=== PATIENT | male | born 1960 | race Caucasian/White ===

== ENCOUNTER 2021-08-31 17:14 | Emergency (ER) | payer OTHER ==
[~2021-08-31] VITALS: Ht 185.4 cm; Wt 135.5 kg
[2021-08-31] MEDS ORDERED: LORazepam 2 MG TAB PO PRN (17:40)
[2021-08-31] MEDS ORDERED: THIAMINE 100 MG TAB PO SCH (18:00)
[2021-08-31 18:15] LABS: BASO # 0.1 10^3/uL (0.0-0.2); BASO % 1.2 % (0.0-1.0); EOS # 0.1 10^3/uL (0.0-0.5); EOS % 2.8 % (0.0-3.0); HEMATOCRIT 42.8 % (42.0-52.0); HEMOGLOBIN 14.3 g/dl (13.5-17.5); LYMPH # 2.7 10^3/uL (1.5-5.0); LYMPH % 54.6 % (24.0-44.0); MEAN CORPUSCULAR HEMOGLOBIN 31.6 pg (27.0-33.0); MEAN CORPUSCULAR HGB CONC 33.4 g/dl (32.0-36.5); MEAN CORPUSCULAR VOLUME 94.7 fl (80.0-96.0); MONO # 0.7 10^3/uL (0.0-0.8); MONO % 13.1 % (2.0-8.0); NEUTROPHILS # 1.4 10^3/uL (1.5-8.5); NEUTROPHILS % 28.1 % (36.0-66.0); RED BLOOD COUNT 4.52 10^6/uL (4.30-6.10)
--- NOTE | 2021-08-31 18:41 | REP ---
INDICATION: SOB COMPARISON: None. TECHNIQUE: Portable AP view of the chest FINDINGS: Cardiomegaly noted. The lung kelley are clear without acute consolidation, effusion, or pneumothorax. Skeletal structures are intact. IMPRESSION: Cardiomegaly. No acute consolidation or effusion. <Electronically signed by Deuce Ko > 08/31/21 [id number]
--- NOTE | 2021-08-31 18:46 | REPVR ---
PROCEDURE INFORMATION: Exam: CT Head Without Contrast Exam date and time: 08/31/2021 5:52 PM Age: 60 years old Clinical indication: Altered mental status/memory loss TECHNIQUE: Imaging protocol: Computed tomography of the head without contrast. Radiation optimization: All CT scans at this facility use at least one of these dose optimization techniques: automated exposure control; mA and/or kV adjustment per patient size (includes targeted exams where dose is matched to clinical indication); or iterative reconstruction. COMPARISON: No relevant prior studies available. FINDINGS: Brain: There is no acute intracranial hemorrhage, cerebral edema, or midline shift. Moderate cerebral and cerebellar volume loss is present. Cerebral ventricles: Mild ex vacuo dilation of the lateral ventricles is noted. Paranasal sinuses: Right maxillary sinusitis is present. Mastoid air cells: The mastoid air cells are clear. Orbital cavity: A right ocular prosthesis is present. Bones/joints: No acute fracture. Soft tissues: Unremarkable. IMPRESSION: No acute intracranial abnormality. Electronically signed by: Chucho Patel On 08/31/2021 18:45:58 PM
[2021-08-31 18:47] LABS: ACETAMINOPHEN LEVEL < 2.0 UG/ML (10.0-30.0); ALBUMIN 3.2 GM/DL (3.2-5.2); ALT/SGPT 90 U/L (12-78); BILIRUBIN,DIRECT 0.4 MG/DL (0.0-0.2); BILIRUBIN,TOTAL 0.7 MG/DL (0.2-1.0); BLOOD UREA NITROGEN 10 MG/DL (7-18); CALCIUM LEVEL 8.1 MG/DL (8.5-10.1); CARBON DIOXIDE LEVEL 26 MEQ/L (21-32); CHLORIDE LEVEL 104 MEQ/L (98-107); CK-MB VALUE MASS 2.1 NG/ML (<3.6); CPK CREATINE PHOSPHOKINASE 68 U/L (39-308); CREATININE FOR GFR 0.89 MG/DL (0.70-1.30); ETHYL ALCOHOL (ETHANOL) 0.392 % (0.000-0.010); GLOMERULAR FILTRATION RATE > 60.0 (>56); GLUCOSE, FASTING 114 MG/DL (70-100); MAGNESIUM LEVEL 1.5 MG/DL (1.8-2.4); MB/CK RELATIVE INDEX 3.09 (< OR =4); SALICYLATE LEVEL < 1.7 MG/DL (5.0-30.0); SODIUM LEVEL 142 MEQ/L (136-145); THYROID STIMULATING HORMONE 0.379 uIU/ML (0.358-3.740); TROPONIN I < 0.02 NG/ML (< 0.10)
[2021-08-31 18:52] LABS: PLATELET COUNT, AUTOMATED 94 10^3/uL (150-450)
[2021-08-31 18:54] LABS: OSMOLALITY SERUM 394 MOSM/KG (275-295)
[2021-08-31] MEDS ORDERED: NS 1,000 ML IV ONE (19:10)
[2021-08-31] MEDS ORDERED: MAG SULF 1GM/100ML (MAG RUN) 1 GM in IV 1 EA IV ONE (19:15)
[2021-08-31 19:16] LABS: NT-PRO BNP 478 PG/ML (<125)
[2021-09-01 00:45] LABS: AMPHETAMINES LEVEL URINE NEGATIVE (NEGATIVE); BARBITURATES URINE NEGATIVE (NEGATIVE); BENZODIAZEPINES URINE NEGATIVE (NEGATIVE); CANNABINOIDS URINE POSITIVE (NEGATIVE); COCAINE METABOLITE URINE NEGATIVE (NEGATIVE); METHADONE URINE NEGATIVE (NEGATIVE); OPIATES URINE NEGATIVE (NEGATIVE); PHENCYCLIDINE URINE NEGATIVE (NEGATIVE)
[2021-09-01 00:46] LABS: CREATININE,RANDOM URINE 36.4 MG/DL
[2021-09-01] MEDS ORDERED: FUROSEMIDE 40 MG TAB PO ONE (01:25)
[2021-09-01 01:39] VITALS: BP 135/87
[2021-09-01] MEDS ORDERED: FOLIC ACID 1 MG TAB PO SCH (09:00)
[2021-09-01] MEDS ORDERED: MULTIVITAMINS/MINERALS THERAP 1 TAB PO SCH (09:00)
--- NOTE | 2021-09-02 17:24 | ECGEPIP ---
[facility] - ED Test Date: 2021-08-31 Pat Name: TIFFANIE YANG Department: Room: - Gender: Male [employer] Developer: kisha : 1960 Requested By: CLINTON CRUZ Order Number: [id number] Reading MD: Zaynab Child Measurements Intervals [place] Rate: 102 P: [place]: QRS: 88 QRSD: 104 T: 3 QT: 366 QTc: 477 Interpretive Statements Atrial fibrillation with rapid ventricular response Nonspecific ST and T wave abnormality prolonged qtc No prior Electronically Signed on 09-02-2021 17:23:59 EDT by Zaynab Child
== END 2021-09-01 01:53 | disposition home or self-care (01) ==
LOC: M ED 17:14
DX: G40.909 Epilepsy, unspecified, not intractable, without status epilepticus (principal); F10.10 Alcohol abuse, uncomplicated; Y90.1 Blood alcohol level of 20-39 mg/100 ml; R60.0 Localized edema; I50.9 Heart failure, unspecified; I11.0 Hypertensive heart disease with heart failure; I48.91 Unspecified atrial fibrillation; Z87.828 Personal history of other (healed) physical injury and trauma; F12.20 Cannabis dependence, uncomplicated
CPT/HCPCS: 70450; 71045; 80048; 80076; 80143; 80307; 82077; 82140; 82550; 82553; 82570; 83605; 83735; 83880; 83930; 83935; 84300; 84443; 85025; 85049; 85055; 93005; 93041; 94760; 96365; 99285; J3475

== ENCOUNTER 2021-10-24 23:37 | Inpatient (IN) | payer OTHER ==
[~2021-10-24] VITALS: Ht 188 cm; Wt 105.3 kg
[2021-10-25] VITALS (13 sets, daily range): BP systolic 118–127; BP diastolic 80–94; O2SAT 92–96
[2021-10-25] LABS: ABG BASE EXCESS 0.7 (-2.0-2.0); ABG HCO3 22.4 MEQ/L (22.0-26.0); ABG PARTIAL PRESSURE CO2 28.5 mmHg (35.0-45.0); ABG STANDARD HCO3 25.1 MEQ/L (22.0-26.0); ABG TOTAL CO2 23.3 MEQ/L (22.0-29.0); ABG pH (ARTERIAL) 7.514 UNITS (7.350-7.450)
[2021-10-25] MEDS ORDERED: NS 1,000 ML IV ONE ×2 (00:10)
[2021-10-25 00:23] LABS: BASO % 0.3 % (0.0-1.0); EOS % 0.1 % (0.0-3.0); HEMATOCRIT 38.4 % (42.0-52.0); HEMOGLOBIN 13.3 g/dl (13.5-17.5); LYMPH # 0.9 10^3/uL (1.5-5.0); LYMPH % 12.7 % (24.0-44.0); MEAN CORPUSCULAR HEMOGLOBIN 31.7 pg (27.0-33.0); MEAN CORPUSCULAR HGB CONC 34.6 g/dl (32.0-36.5); MEAN CORPUSCULAR VOLUME 91.6 fl (80.0-96.0); MONO # 0.9 10^3/uL (0.0-0.8); MONO % 12.8 % (2.0-8.0); NEUTROPHILS # 5.1 10^3/uL (1.5-8.5); NEUTROPHILS % 73.2 % (36.0-66.0); PLATELET COUNT, AUTOMATED 119 10^3/uL (150-450); RED BLOOD COUNT 4.19 10^6/uL (4.30-6.10); WHITE BLOOD COUNT 6.9 10^3/uL (4.0-10.0)
[2021-10-25 00:32] LABS: INR 1.41; PROTHROMBIN TIME 17.7 SECONDS (12.7-14.5)
[2021-10-25 00:57] LABS: AMORPHOUS SEDIMENT SMALL (NEGATIVE); APPEARANCE, URINE HAZY (CLEAR); BACTERIA, URINE AUTO NEGATIVE (NEGATIVE); BILIRUBIN, URINE AUTO 2+ (NEGATIVE); BLOOD, URINE BLOOD 1+ (NEGATIVE); COLOR, URINE AMBER (YELLOW); GLUCOSE, URINE (UA) AUTO 1+ mg/dL (NEGATIVE); KETONE, URINE AUTO TRACE mg/dL (NEGATIVE); LEUKOCYTE ESTERASE, URINE AUTO NEGATIVE (NEGATIVE); NITRITE, URINE AUTO NEGATIVE (NEGATIVE); PROTEIN, URINE AUTO 2+ mg/dL (NEGATIVE); RBC, URINE AUTO 0 /HPF (0-3); SPECIFIC GRAVITY URINE AUTO 1.024 (1.002-1.035); SQUAMOUS EPITHELIAL CELL UR AU 0 /HPF (0-6); WBC, URINE AUTO 2 /HPF (0-3)
[2021-10-25 01:06] LABS: ALT/SGPT 140 U/L (12-78); BILIRUBIN,DIRECT 14.4 MG/DL (0.0-0.2); BILIRUBIN,TOTAL 17.4 MG/DL (0.2-1.0); BLOOD UREA NITROGEN 26 MG/DL (7-18); CALCIUM LEVEL 7.8 MG/DL (8.5-10.1); CARBON DIOXIDE LEVEL 24 MEQ/L (21-32); CHLORIDE LEVEL 89 MEQ/L (98-107); CREATININE FOR GFR 1.11 MG/DL (0.70-1.30); GLOMERULAR FILTRATION RATE > 60.0 (>56); GLUCOSE, FASTING 187 MG/DL (70-100); POTASSIUM SERUM 4.6 MEQ/L (3.5-5.1); SODIUM LEVEL 128 MEQ/L (136-145)
[2021-10-25 01:07] LABS: ALBUMIN 2.5 GM/DL (3.2-5.2); AMYLASE 108 U/L (25-115); C REACTIVE PROTEIN QUANTITATIV 5.56 MG/DL (0.00-0.30); LIPASE 1909 U/L (73-393); TOTAL PROTEIN 6.3 GM/DL (6.4-8.2)
[2021-10-25 01:16] LABS: RSV AMPLIFICATION NEGATIVE (NEGATIVE)
[2021-10-25] MEDS ORDERED: PIPERACILLIN/TAZOBACTAM SOD 4.5 GM in D5W MINI-BAG PLUS 50 ML IV ONE (02:20)
[2021-10-25] MEDS: METOPROLOL 5 MG/5 ML VIAL IV SCH ×3 (02:50→03:05)
[2021-10-25] MEDS ORDERED: LEXA1TAB PO (02:59)
[2021-10-25] MEDS ORDERED: BUPR150T12 PO (02:59)
[2021-10-25] MEDS ORDERED: HYDR1CAP25 PO (02:59)
[2021-10-25] MEDS ORDERED: SUBO8MIS SL (02:59)
[2021-10-25] MEDS ORDERED: GABA-282 PO (02:59)
[2021-10-25] MEDS ORDERED: FUROSEMIDE 40MG/4ML VIAL (J1940) IV SCH (03:00)
[2021-10-25] MEDS ORDERED: HOME MED LIST COMPLETE! XX SCH (03:00)
[2021-10-25] MEDS ORDERED: DIGOXIN INJ 0.5 MG/2 ML AMP (J1160) IV STA ×2 (03:37→08:03)
[2021-10-25] MEDS ORDERED: METOPROLOL TART 25 MG TABLET PO ONE ×2 (05:00→08:45)
[2021-10-25 05:43] LABS: OSMOLALITY URINE 741 MOSM/KG (50-1400)
[2021-10-25] MEDS ORDERED: HEPARIN SOD (PORCINE) 5000UNITS/ML 1ML VIAL/SYRINGE IV ONE (05:45)
[2021-10-25 05:50] LABS: POTASSIUM RANDOM URINE 20.8 MEQ/L; SODIUM,RANDOM URINE < 10 MEQ/L
[2021-10-25] MEDS ORDERED: HEPARIN SOD (PORCINE) 5000UNITS/ML 1ML VIAL/SYRINGE IV PRN (06:00)
[2021-10-25] MEDS ORDERED: HEPARIN SOD (PORCINE) 5000UNITS/ML 1ML VIAL/SYRINGE SC SCH (06:00)
[2021-10-25] MEDS ORDERED: HEPARIN DRIP 25,000 UNITS in IV 1 EA IV SCH (06:00)
[2021-10-25 06:37] LABS: HEMATOCRIT 38.2 % (42.0-52.0); MEAN CORPUSCULAR HEMOGLOBIN 31.5 pg (27.0-33.0); MEAN CORPUSCULAR VOLUME 92.5 fl (80.0-96.0); PLATELET COUNT, AUTOMATED 117 10^3/uL (150-450); RED BLOOD COUNT 4.13 10^6/uL (4.30-6.10); WHITE BLOOD COUNT 7.2 10^3/uL (4.0-10.0)
[2021-10-25 06:56] LABS: CK-MB VALUE MASS 2.1 NG/ML (<3.6); MB/CK RELATIVE INDEX 2.5 (< OR =4)
[2021-10-25 07:38] LABS: OSMOLALITY SERUM 342 MOSM/KG (275-295)
[2021-10-25] MEDS ORDERED: NS 1,000 ML IV SCH ×2 (07:40→08:00)
[2021-10-25] MEDS: MULTIVITAMINS/MINERALS THERAP 1 TAB PO SCH (08:31)
[2021-10-25] MEDS: FOLIC ACID 1 MG TAB PO SCH (08:33)
[2021-10-25] MEDS: GABAPENTIN 300 MG CAP PO SCH ×3 (08:33→21:18)
[2021-10-25] MEDS: PIPERACILLIN/TAZOBACTAM SOD 4.5 GM in D5W MINI-BAG PLUS 50 ML IV SCH ×3 (08:33→21:26)
[2021-10-25] MEDS: ESCITALOPRAM OXALATE 10 MG TAB (LEXAPRO) PO SCH (08:33)
[2021-10-25] MEDS: THIAMINE 100 MG TAB PO SCH ×2 (08:33→21:18)
[2021-10-25] MEDS: BUPRENORPHINE/NALOXONE 8-2MG SUBLINGUAL TABLET(SUBOXONE) SL SCH ×3 (08:55→21:18)
[2021-10-25] MEDS: PANTOPRAZOLE 40MG VIAL (C9113 PER 1) IV SCH (09:00)
[2021-10-25] MEDS ORDERED: APIXABAN 5 MG TAB (ELIQUIS) PO SCH (09:00)
[2021-10-25 09:47] LABS: ALBUMIN 2.4 GM/DL (3.2-5.2); ALT/SGPT 139 U/L (12-78); BILIRUBIN,TOTAL 18.4 MG/DL (0.2-1.0); BLOOD UREA NITROGEN 27 MG/DL (7-18); CALCIUM LEVEL 7.4 MG/DL (8.5-10.1); CARBON DIOXIDE LEVEL 20 MEQ/L (21-32); CHLORIDE LEVEL 90 MEQ/L (98-107); CREATININE FOR GFR 1.14 MG/DL (0.70-1.30); FERRITIN 712 NG/ML (26-388); FREE T4 1.33 NG/DL (0.76-1.46); GLOMERULAR FILTRATION RATE > 60.0 (>56); GLUCOSE, FASTING 195 MG/DL (70-100); IRON (FE) 104 UG/DL (65-175); MAGNESIUM LEVEL 1.6 MG/DL (1.8-2.4); PERCENT SATURATION 49.5 % (19.7-50.0); SODIUM LEVEL 128 MEQ/L (136-145); THYROID STIMULATING HORMONE 0.429 uIU/ML (0.358-3.740); TOTAL IRON BINDING CAPACITY 210 UG/DL (250-450)
[2021-10-25] MEDS ORDERED: LORazepam 2 MG TAB PO PRN (10:00)
[2021-10-25] MEDS ORDERED: FUROSEMIDE 40MG/4ML VIAL (J1940) IV ONE (11:00)
[2021-10-25] MEDS ORDERED: predniSONE 20 MG TAB PO ONE (11:00)
[2021-10-25 11:20] LABS: CK-MB VALUE MASS 2.3 NG/ML (<3.6); MB/CK RELATIVE INDEX 2.47 (< OR =4)
[2021-10-25] MEDS: MIDODRINE 5 MG TAB PO SCH ×3 (11:40→16:00)
[2021-10-25] MEDS: LACTOBACILLUS ACIDOPHILUS CAP (BACID) PO SCH ×3 (11:40→21:19)
[2021-10-25] MEDS: LORazepam 2 MG TAB PO PRN ×2 (11:59→16:24)
[2021-10-25] MEDS ORDERED: diltiaZEM 125 MG in NS 100 ML IV SCH (12:00)
[2021-10-25] MEDS ORDERED: METOPROLOL TART 50 MG TAB PO SCH (12:00)
[2021-10-25] MEDS: DIGOXIN INJ 0.5 MG/2 ML AMP (J1160) IV SCH ×2 (13:23→21:18)
[2021-10-25] MEDS: OXAZEPAM 15 MG CAP PO SCH ×2 (13:23→18:05)
[2021-10-25 14:25] LABS: ACETAMINOPHEN LEVEL < 2.0 UG/ML (10.0-30.0); FERRITIN 798 NG/ML (26-388); IRON (FE) 118 UG/DL (65-175); PERCENT SATURATION 53.6 % (19.7-50.0); TOTAL IRON BINDING CAPACITY 220 UG/DL (250-450)
[2021-10-25] MEDS: FUROSEMIDE 40MG/4ML VIAL (J1940) IV SCH ×3 (14:45→23:56)
[2021-10-25 16:30] LABS: MONO REFLEX EBV VCA IgM NEGATIVE (NEGATIVE)
[2021-10-25 19:33] LABS: CK-MB VALUE MASS 2.1 NG/ML (<3.6); MB/CK RELATIVE INDEX 2.12 (< OR =4)
[2021-10-25 20:26] LABS: BLOOD UREA NITROGEN 27 MG/DL (7-18); CALCIUM LEVEL 7.8 MG/DL (8.5-10.1); CARBON DIOXIDE LEVEL 23 MEQ/L (21-32); CHLORIDE LEVEL 89 MEQ/L (98-107); CREATININE FOR GFR 1.29 MG/DL (0.70-1.30); GLOMERULAR FILTRATION RATE > 60.0 (>56); GLUCOSE, FASTING 261 MG/DL (70-100); POTASSIUM SERUM 3.6 MEQ/L (3.5-5.1); SODIUM LEVEL 128 MEQ/L (136-145)
[2021-10-25] MEDS ORDERED: METOPROLOL TART 25 MG TABLET PO SCH (21:00)
[2021-10-26] VITALS (16 sets, daily range): BP systolic 98–140; BP diastolic 56–84; O2SAT 88–97
[2021-10-26 00:13] LABS: CK-MB VALUE MASS 1.8 NG/ML (<3.6); MB/CK RELATIVE INDEX 2.22 (< OR =4)
[2021-10-26] MEDS: OXAZEPAM 15 MG CAP PO SCH ×4 (00:45→18:40)
[2021-10-26] MEDS: PIPERACILLIN/TAZOBACTAM SOD 4.5 GM in D5W MINI-BAG PLUS 50 ML IV SCH ×4 (03:00→20:47)
[2021-10-26 06:25] LABS: BASO % 0.2 % (0.0-1.0); HEMATOCRIT 34.2 % (42.0-52.0); LYMPH # 0.6 10^3/uL (1.5-5.0); LYMPH % 9.4 % (24.0-44.0); MEAN CORPUSCULAR HEMOGLOBIN 32.2 pg (27.0-33.0); MEAN CORPUSCULAR HGB CONC 35.1 g/dl (32.0-36.5); MEAN CORPUSCULAR VOLUME 91.7 fl (80.0-96.0); MONO # 0.7 10^3/uL (0.0-0.8); MONO % 10.8 % (2.0-8.0); NEUTROPHILS % 77.9 % (36.0-66.0); RED BLOOD COUNT 3.73 10^6/uL (4.30-6.10); WHITE BLOOD COUNT 6.4 10^3/uL (4.0-10.0)
[2021-10-26 06:29] LABS: HEMATOCRIT 34.8 % (42.0-52.0); HEMOGLOBIN 12.1 g/dl (13.5-17.5); MEAN CORPUSCULAR HEMOGLOBIN 32.2 pg (27.0-33.0); MEAN CORPUSCULAR HGB CONC 34.8 g/dl (32.0-36.5); MEAN CORPUSCULAR VOLUME 92.6 fl (80.0-96.0); RED BLOOD COUNT 3.76 10^6/uL (4.30-6.10); WHITE BLOOD COUNT 6.4 10^3/uL (4.0-10.0)
[2021-10-26 06:31] LABS: PLATELET COUNT, AUTOMATED 96 10^3/uL (150-450)
[2021-10-26 06:34] LABS: INR 1.52; PARTIAL THROMBOPLASTIN TIME 36.3 SECONDS (25.9-37.0); PROTHROMBIN TIME 18.7 SECONDS (12.7-14.5)
[2021-10-26 06:42] LABS: PLATELET COUNT, AUTOMATED 95 10^3/uL (150-450)
[2021-10-26 07:07] LABS: CHOLESTEROL RISK RATIO 10.25 (<5)
[2021-10-26 07:23] LABS: ALBUMIN 2.3 GM/DL (3.2-5.2); BILIRUBIN,TOTAL 20.9 MG/DL (0.2-1.0); CALCIUM LEVEL 7.7 MG/DL (8.5-10.1); CREATININE FOR GFR 1.36 MG/DL (0.70-1.30); GLOMERULAR FILTRATION RATE 57.3 (>56); MAGNESIUM LEVEL 1.3 MG/DL (1.8-2.4); POTASSIUM SERUM 3.2 MEQ/L (3.5-5.1); TOTAL PROTEIN 5.9 GM/DL (6.4-8.2)
[2021-10-26] MEDS ORDERED: MAG SULF 1GM/100ML (MAG RUN) 1 GM in IV 1 EA IV ONE ×2 (08:00→18:25)
[2021-10-26 08:14] LABS: HEMOGLOBIN A1c 5.6 %
[2021-10-26] MEDS: MIDODRINE 5 MG TAB PO SCH ×3 (08:42→16:09)
[2021-10-26] MEDS: MULTIVITAMINS/MINERALS THERAP 1 TAB PO SCH (08:43)
[2021-10-26] MEDS: predniSONE 20 MG TAB PO SCH (08:43)
[2021-10-26] MEDS: LACTOBACILLUS ACIDOPHILUS CAP (BACID) PO SCH ×4 (08:43→20:46)
[2021-10-26] MEDS: POTASSIUM CHLORIDE 10MEQ SR TABLET PO SCH ×2 (08:43→20:46)
[2021-10-26] MEDS: BUPRENORPHINE/NALOXONE 8-2MG SUBLINGUAL TABLET(SUBOXONE) SL SCH ×3 (08:44→20:45)
[2021-10-26] MEDS: GABAPENTIN 300 MG CAP PO SCH ×3 (08:44→20:45)
[2021-10-26] MEDS: THIAMINE 100 MG TAB PO SCH ×2 (08:44→20:47)
[2021-10-26] MEDS: FOLIC ACID 1 MG TAB PO SCH (08:44)
[2021-10-26] MEDS: ESCITALOPRAM OXALATE 10 MG TAB (LEXAPRO) PO SCH (08:44)
[2021-10-26] MEDS: PANTOPRAZOLE 40MG VIAL (C9113 PER 1) IV SCH (08:46)
[2021-10-26 11:25] LABS: VITAMIN B12 LEVEL 1969 PG/ML
[2021-10-26 11:26] LABS: FOLATE 8.4 NG/ML
[2021-10-26 11:48] LABS: HEPATITIS B SURFACE ANTIGEN NEGATIVE (NEGATIVE)
[2021-10-26 12:16] LABS: HEPATITIS B CORE ANTIBODY IGM NEGATIVE (NEGATIVE); HEPATITIS C VIRUS ABY INDEX 0.1 INDEX (<0.8)
[2021-10-26] MEDS ORDERED: DIGOXIN 0.125 MG TAB PO STA (14:59)
[2021-10-26 15:04] LABS: ABG BASE EXCESS 6.2 (-2.0-2.0); ABG O2 SATURATION 92.4 % (95.0-99.0); ABG PARTIAL PRESSURE CO2 40.5 mmHg (35.0-45.0); ABG PARTIAL PRESSURE O2 64.9 mmHg (75.0-100.0); ABG STANDARD HCO3 29.9 MEQ/L (22.0-26.0); ABG TOTAL CO2 31.3 MEQ/L (22.0-29.0); ABG pH (ARTERIAL) 7.488 UNITS (7.350-7.450)
[2021-10-26 16:29] LABS: ALBUMIN 2.2 GM/DL (3.2-5.2); ALT/SGPT 119 U/L (12-78); BILIRUBIN,TOTAL 20.6 MG/DL (0.2-1.0); BLOOD UREA NITROGEN 26 MG/DL (7-18); CALCIUM LEVEL 7.8 MG/DL (8.5-10.1); CARBON DIOXIDE LEVEL 31 MEQ/L (21-32); CHLORIDE LEVEL 88 MEQ/L (98-107); CREATININE FOR GFR 1.24 MG/DL (0.70-1.30); GLOMERULAR FILTRATION RATE > 60.0 (>56); GLUCOSE, FASTING 238 MG/DL (70-100); MAGNESIUM LEVEL 1.4 MG/DL (1.8-2.4); POTASSIUM SERUM 3.4 MEQ/L (3.5-5.1); SODIUM LEVEL 129 MEQ/L (136-145); TOTAL PROTEIN 5.4 GM/DL (6.4-8.2)
[2021-10-26] MEDS: OCTREOTIDE ACETATE 1,200 MCG in NS 238.8 ML IV SCH (16:31)
[2021-10-26] MEDS ORDERED: FUROSEMIDE injection 250 MG in D5W 225 ML IV SCH (17:00)
[2021-10-26] MEDS: AMIODARONE 200 MG TAB (PACERONE) PO SCH (20:47)
[2021-10-26] MEDS: MAGNESIUM OXIDE 400MG TAB (MAG-OX) PO SCH (20:47)
[2021-10-27] VITALS (12 sets, daily range): BP systolic 127–158; BP diastolic 87–105; O2SAT 86–97
[2021-10-27] MEDS: OXAZEPAM 15 MG CAP PO SCH ×4 (00:16→18:42)
[2021-10-27] MEDS: PIPERACILLIN/TAZOBACTAM SOD 4.5 GM in D5W MINI-BAG PLUS 50 ML IV SCH ×4 (02:49→21:19)
[2021-10-27 08:33] LABS: HEMATOCRIT 36.2 % (42.0-52.0); HEMOGLOBIN 12.2 g/dl (13.5-17.5); MEAN CORPUSCULAR HEMOGLOBIN 32.1 pg (27.0-33.0); MEAN CORPUSCULAR HGB CONC 33.7 g/dl (32.0-36.5); MEAN CORPUSCULAR VOLUME 95.3 fl (80.0-96.0); PLATELET COUNT, AUTOMATED 117 10^3/uL (150-450); WHITE BLOOD COUNT 9.2 10^3/uL (4.0-10.0)
[2021-10-27 08:43] LABS: INR 1.46; PROTHROMBIN TIME 18.2 SECONDS (12.7-14.5)
[2021-10-27 08:44] LABS: PARTIAL THROMBOPLASTIN TIME 32.6 SECONDS (25.9-37.0)
[2021-10-27] MEDS: LACTOBACILLUS ACIDOPHILUS CAP (BACID) PO SCH ×4 (08:49→21:18)
[2021-10-27] MEDS: AMIODARONE 200 MG TAB (PACERONE) PO SCH ×2 (08:50→21:19)
[2021-10-27] MEDS: BUPRENORPHINE/NALOXONE 8-2MG SUBLINGUAL TABLET(SUBOXONE) SL SCH ×3 (08:50→21:18)
[2021-10-27] MEDS: MULTIVITAMINS/MINERALS THERAP 1 TAB PO SCH (08:50)
[2021-10-27] MEDS: ESCITALOPRAM OXALATE 10 MG TAB (LEXAPRO) PO SCH (08:50)
[2021-10-27] MEDS: POTASSIUM CHLORIDE 10MEQ SR TABLET PO SCH (08:50)
[2021-10-27] MEDS: predniSONE 20 MG TAB PO SCH (08:51)
[2021-10-27] MEDS: PANTOPRAZOLE 40MG VIAL (C9113 PER 1) IV SCH (08:52)
[2021-10-27] MEDS: MIDODRINE 5 MG TAB PO SCH ×3 (08:52→16:00)
[2021-10-27] MEDS: FOLIC ACID 1 MG TAB PO SCH (08:53)
[2021-10-27] MEDS: GABAPENTIN 300 MG CAP PO SCH ×3 (08:54→21:18)
[2021-10-27] MEDS: MAGNESIUM OXIDE 400MG TAB (MAG-OX) PO SCH ×3 (08:54→21:18)
[2021-10-27] MEDS: THIAMINE 100 MG TAB PO SCH ×2 (08:54→21:18)
[2021-10-27] MEDS ORDERED: SPIRONOLACTONE 25 MG TAB PO SCH (09:00)
[2021-10-27] MEDS ORDERED: DIGOXIN 0.125 MG TAB PO SCH (09:00)
[2021-10-27 09:46] LABS: ALBUMIN 2.7 GM/DL (3.2-5.2); BILIRUBIN,TOTAL 24.8 MG/DL (0.2-1.0); CALCIUM LEVEL 7.8 MG/DL (8.5-10.1); CREATININE FOR GFR 1.43 MG/DL (0.70-1.30); GLOMERULAR FILTRATION RATE 54.1 (>56); MAGNESIUM LEVEL 1.6 MG/DL (1.8-2.4); POTASSIUM SERUM 3.6 MEQ/L (3.5-5.1)
[2021-10-27] MEDS: TORSEMIDE 20 MG TAB PO SCH ×3 (11:00→18:42)
[2021-10-27] MEDS ORDERED: MORPHINE 2 MG/ML 1ML VIAL (J2270) IV PRN (15:35)
[2021-10-27] MEDS ORDERED: ACETAMINOPHEN TAB 650MG DOSE (2X325MG) PO PRN (15:35)
[2021-10-27] MEDS ORDERED: BISACODYL 10 MG SUPP PR PRN (15:35)
[2021-10-27] MEDS ORDERED: SCOPOLAMINE 1MG TRANSDERMAL PATCH TOP PRN (15:35)
[2021-10-27] MEDS ORDERED: ONDANSETRON 4MG/2ML VIAL IV PRN (15:35)
[2021-10-27] MEDS ORDERED: ACETAMINOPHEN 650 MG SUPP PR PRN (15:35)
[2021-10-27] MEDS ORDERED: ATROPINE SULFATE 1% OP SOLN 2 ML BTL SL PRN (15:35)
[2021-10-27] MEDS ORDERED: FLEET ENEMA PR PRN (15:35)
[2021-10-27] MEDS ORDERED: MORPHINE 10MG/0.5ML ORAL CONCENTRATE SOLUTION U/D SL PRN (15:35)
[2021-10-27] MEDS ORDERED: LORazepam 1 MG TAB PO PRN (15:35)
[2021-10-27] MEDS ORDERED: HYOSCYAMINE SULFATE 0.125 MG SUBL TABLET PO PRN (15:35)
[2021-10-27] MEDS ORDERED: LORazepam 2 MG/ML VIAL IV PRN (15:35)
[2021-10-27] MEDS: OCTREOTIDE ACETATE 1,200 MCG in NS 238.8 ML IV SCH (16:00)
[2021-10-28] MEDS ORDERED: OXAZEPAM 15 MG CAP PO PRN (00:05)
[2021-10-28] MEDS: PIPERACILLIN/TAZOBACTAM SOD 4.5 GM in D5W MINI-BAG PLUS 50 ML IV SCH (02:27)
[2021-10-28] MEDS: GABAPENTIN 300 MG CAP PO SCH ×3 (08:48→20:24)
[2021-10-28] MEDS: BUPRENORPHINE/NALOXONE 8-2MG SUBLINGUAL TABLET(SUBOXONE) SL SCH ×3 (08:48→20:24)
[2021-10-28] MEDS ORDERED: diphenhydrAMINE 50MG/ML VIAL (J1200) IV PRN (22:10)
[2021-10-29] MEDS: PENTOXIFYLLINE 400 MG TAB PO SCH ×3 (09:00→20:20)
[2021-10-29] MEDS ORDERED: APIXABAN 2.5 MG TAB (ELIQUIS) PO SCH (09:00)
[2021-10-29] MEDS: GABAPENTIN 300 MG CAP PO SCH (10:10)
[2021-10-29] MEDS: BUPRENORPHINE/NALOXONE 8-2MG SUBLINGUAL TABLET(SUBOXONE) SL SCH ×3 (10:10→20:20)
[2021-10-29] MEDS: hydrOXYzine 25 MG TAB PO PRN (10:17)
[2021-10-29 11:32] LABS: RED BLOOD COUNT 4.18 10^6/uL (4.30-6.10); WHITE BLOOD COUNT 9.5 10^3/uL (4.0-10.0)
[2021-10-29 11:33] LABS: HEMATOCRIT 40.1 % (42.0-52.0); HEMOGLOBIN 13.4 g/dl (13.5-17.5); MEAN CORPUSCULAR HEMOGLOBIN 32.1 pg (27.0-33.0); MEAN CORPUSCULAR HGB CONC 33.4 g/dl (32.0-36.5); MEAN CORPUSCULAR VOLUME 95.9 fl (80.0-96.0); PLATELET COUNT, AUTOMATED 143 10^3/uL (150-450)
[2021-10-29 11:41] LABS: INR 1.37; PROTHROMBIN TIME 17.3 SECONDS (12.7-14.5)
[2021-10-29] MEDS ORDERED: prednisoLONE (PRELONE) 15MG/5ML SYRUP UDC PO ONE (12:00)
[2021-10-29 12:39] LABS: ALBUMIN 2.1 GM/DL (3.2-5.2); ALT/SGPT 126 U/L (12-78); BLOOD UREA NITROGEN 14 MG/DL (7-18); CALCIUM LEVEL 7.9 MG/DL (8.5-10.1); CARBON DIOXIDE LEVEL 39 MEQ/L (21-32); CHLORIDE LEVEL 87 MEQ/L (98-107); CREATININE FOR GFR 1.02 MG/DL (0.70-1.30); GLOMERULAR FILTRATION RATE > 60.0 (>56); GLUCOSE, FASTING 218 MG/DL (70-100); POTASSIUM SERUM 3.1 MEQ/L (3.5-5.1); SODIUM LEVEL 135 MEQ/L (136-145); TOTAL PROTEIN 5.4 GM/DL (6.4-8.2)
[2021-10-29 12:45] LABS: ANISOCYTOSIS 2+; ATYPICAL LYMPH 2 % (0-5); EOSINOPHILS 3 % (0-3); LYMPHOCYTES 16 % (16-44); METAMYELOCYTES 1 % (0-0); NEUTROPHILS 77 % (28-66); OVALOCYTES 1+; POIKILOCYTOSIS 1+; POLYCHROMASIA 1+
[2021-10-29 12:46] LABS: PLATELET ESTIMATE NORMAL (NORMAL)
[2021-10-29] MEDS: FUROSEMIDE 40MG/4ML VIAL (J1940) IV SCH ×2 (12:52→20:20)
[2021-10-29] MEDS: SPIRONOLACTONE 25 MG TAB PO SCH ×2 (12:52→16:40)
[2021-10-29 14:00] VITALS: BP 134/86
[2021-10-29] MEDS ORDERED: MAG SULF 1GM/100ML (MAG RUN) 1 GM in IV 1 EA IV ONE (14:00)
[2021-10-29] MEDS ORDERED: POTASSIUM CHLORIDE 10MEQ SR TABLET PO ONE (14:00)
[2021-10-29] MEDS ORDERED: MAGNESIUM OXIDE 400MG TAB (MAG-OX) PO ONE (14:00)
[2021-10-29] MEDS ORDERED: KCL 10MEQ/100ML SWI (KRUN) 10 MEQ in IV 1 EA IV ONE (14:00)
[2021-10-29 14:02] LABS: BILIRUBIN,TOTAL 25.7 MG/DL (0.2-1.0)
[2021-10-29] MEDS ORDERED: PANTOPRAZOLE 40MG VIAL (C9113 PER 1) IV ONE (14:35)
[2021-10-29 14:49] VITALS: BP 125/76
[2021-10-29] MEDS: APIXABAN 5 MG TAB (ELIQUIS) PO SCH ×2 (15:43→20:20)
[2021-10-29 16:12] VITALS: BP 134/81
[2021-10-29 20:00] VITALS: BP 141/93
[2021-10-30 04:00] VITALS: BP_SYST 114; BP_SYST 165; BP_DIAS 60; BP_DIAS 85
[2021-10-30] MEDS: FUROSEMIDE 40MG/4ML VIAL (J1940) IV SCH (04:09)
[2021-10-30 06:14] LABS: BASO # 0.1 10^3/uL (0.0-0.2); BASO % 0.6 % (0.0-1.0); EOS % 0.1 % (0.0-3.0); HEMATOCRIT 42.9 % (42.0-52.0); HEMOGLOBIN 14.4 g/dl (13.5-17.5); LYMPH # 0.6 10^3/uL (1.5-5.0); LYMPH % 4.5 % (24.0-44.0); MEAN CORPUSCULAR HEMOGLOBIN 31.6 pg (27.0-33.0); MEAN CORPUSCULAR HGB CONC 33.6 g/dl (32.0-36.5); MEAN CORPUSCULAR VOLUME 94.3 fl (80.0-96.0); MONO # 0.9 10^3/uL (0.0-0.8); MONO % 6.9 % (2.0-8.0); NEUTROPHILS # 10.3 10^3/uL (1.5-8.5); NEUTROPHILS % 83.1 % (36.0-66.0); PLATELET COUNT, AUTOMATED 147 10^3/uL (150-450); RED BLOOD COUNT 4.55 10^6/uL (4.30-6.10); WHITE BLOOD COUNT 12.4 10^3/uL (4.0-10.0)
[2021-10-30 06:56] LABS: ALBUMIN 2.3 GM/DL (3.2-5.2); ALT/SGPT 143 U/L (12-78); BILIRUBIN,TOTAL 30.8 MG/DL (0.2-1.0); BLOOD UREA NITROGEN 15 MG/DL (7-18); CALCIUM LEVEL 7.9 MG/DL (8.5-10.1); CARBON DIOXIDE LEVEL 37 MEQ/L (21-32); CHLORIDE LEVEL 87 MEQ/L (98-107); CREATININE FOR GFR 1.08 MG/DL (0.70-1.30); GLOMERULAR FILTRATION RATE > 60.0 (>56); GLUCOSE, FASTING 256 MG/DL (70-100); MAGNESIUM LEVEL 1.2 MG/DL (1.8-2.4); POTASSIUM SERUM 3.1 MEQ/L (3.5-5.1); SODIUM LEVEL 133 MEQ/L (136-145); TOTAL PROTEIN 6.2 GM/DL (6.4-8.2)
[2021-10-30 08:00] VITALS: BP 134/79
[2021-10-30] MEDS ORDERED: GLUCOSE 4GM CHEW TABLET PO PRN (08:00)
[2021-10-30] MEDS ORDERED: DEXTROSE 50% 50 ML SYRINGE IV PRN (08:00)
[2021-10-30] MEDS ORDERED: GLUCAGON INJ 1MG VIAL SC PRN (08:00)
[2021-10-30] MEDS ORDERED: POTASSIUM CHLORIDE 10MEQ SR TABLET PO ONE ×2 (08:00→18:45)
[2021-10-30] MEDS ORDERED: MAG SULF 1GM/100ML (MAG RUN) 1 GM in IV 1 EA IV ONE (09:00)
[2021-10-30] MEDS ORDERED: PANTOPRAZOLE 40MG VIAL (C9113 PER 1) IV SCH (09:00)
[2021-10-30] MEDS: SPIRONOLACTONE 25 MG TAB PO SCH (09:24)
[2021-10-30] MEDS: MAGNESIUM OXIDE 400MG TAB (MAG-OX) PO SCH ×2 (09:25→21:41)
[2021-10-30] MEDS: APIXABAN 5 MG TAB (ELIQUIS) PO SCH ×2 (09:25→21:41)
[2021-10-30] MEDS: BUPRENORPHINE/NALOXONE 8-2MG SUBLINGUAL TABLET(SUBOXONE) SL SCH ×3 (09:25→21:41)
[2021-10-30] MEDS: PENTOXIFYLLINE 400 MG TAB PO SCH ×3 (09:25→21:42)
[2021-10-30] MEDS: HumaLOG INSULIN (NovoLOG) PER UNIT SC SCH ×4 (09:50→21:00)
[2021-10-30] MEDS: LevoFLOXacin 500 MG TABLET PO SCH (09:50)
[2021-10-30] MEDS: hydrOXYzine 25 MG TAB PO PRN (10:43)
[2021-10-30] MEDS ORDERED: SPIRONOLACTONE 25 MG TAB PO ONE (12:00)
[2021-10-30 16:00] VITALS: BP 105/72
[2021-10-30] MEDS: TORSEMIDE 20 MG TAB PO SCH (17:37)
[2021-10-30 18:35] LABS: BLOOD UREA NITROGEN 15 MG/DL (7-18); CALCIUM LEVEL 7.7 MG/DL (8.5-10.1); CARBON DIOXIDE LEVEL 39 MEQ/L (21-32); CHLORIDE LEVEL 87 MEQ/L (98-107); CREATININE FOR GFR 0.94 MG/DL (0.70-1.30); GLOMERULAR FILTRATION RATE > 60.0 (>56); GLUCOSE, FASTING 180 MG/DL (70-100); POTASSIUM SERUM 3.1 MEQ/L (3.5-5.1); SODIUM LEVEL 135 MEQ/L (136-145)
[2021-10-30 20:00] VITALS: BP 111/85
[2021-10-31] MEDS: ONDANSETRON 4 MG ORAL DISINTEGRATING TAB PO PRN ×2 (02:26→18:38)
[2021-10-31 04:00] VITALS: BP 111/74
[2021-10-31 06:13] LABS: BASO # 0.1 10^3/uL (0.0-0.2); BASO % 0.4 % (0.0-1.0); EOS # 0.2 10^3/uL (0.0-0.5); EOS % 1.3 % (0.0-3.0); HEMATOCRIT 41.5 % (42.0-52.0); LYMPH # 0.9 10^3/uL (1.5-5.0); LYMPH % 7.5 % (24.0-44.0); MEAN CORPUSCULAR HEMOGLOBIN 32.3 pg (27.0-33.0); MEAN CORPUSCULAR HGB CONC 33.7 g/dl (32.0-36.5); MEAN CORPUSCULAR VOLUME 95.6 fl (80.0-96.0); MONO # 0.9 10^3/uL (0.0-0.8); MONO % 7.1 % (2.0-8.0); NEUTROPHILS # 9.7 10^3/uL (1.5-8.5); NEUTROPHILS % 81.5 % (36.0-66.0); PLATELET COUNT, AUTOMATED 145 10^3/uL (150-450); RED BLOOD COUNT 4.34 10^6/uL (4.30-6.10); WHITE BLOOD COUNT 11.9 10^3/uL (4.0-10.0)
[2021-10-31] MEDS: LevoFLOXacin 500 MG TABLET PO SCH (06:21)
[2021-10-31 06:54] LABS: ALBUMIN 2.1 GM/DL (3.2-5.2); ALT/SGPT 135 U/L (12-78); BLOOD UREA NITROGEN 15 MG/DL (7-18); CALCIUM LEVEL 7.6 MG/DL (8.5-10.1); CARBON DIOXIDE LEVEL 36 MEQ/L (21-32); CHLORIDE LEVEL 87 MEQ/L (98-107); GLOMERULAR FILTRATION RATE > 60.0 (>56); GLUCOSE, FASTING 140 MG/DL (70-100); MAGNESIUM LEVEL 1.4 MG/DL (1.8-2.4); SODIUM LEVEL 133 MEQ/L (136-145); TOTAL PROTEIN 5.5 GM/DL (6.4-8.2)
[2021-10-31 07:22] LABS: BILIRUBIN,TOTAL 28.9 MG/DL (0.2-1.0)
[2021-10-31 08:00] VITALS: BP 136/86
[2021-10-31] MEDS ORDERED: MAG SULF 1GM/100ML (MAG RUN) 1 GM in IV 1 EA IV ONE (08:00)
[2021-10-31] MEDS ORDERED: SPIRONOLACTONE 25 MG TAB PO SCH (09:00)
[2021-10-31] MEDS ORDERED: KCL 10MEQ/100ML SWI (KRUN) 10 MEQ in IV 1 EA IV ONE (09:00)
[2021-10-31] MEDS: APIXABAN 5 MG TAB (ELIQUIS) PO SCH ×2 (10:04→21:26)
[2021-10-31] MEDS: TORSEMIDE 20 MG TAB PO SCH ×2 (10:05→18:38)
[2021-10-31] MEDS: PANTOPRAZOLE 40MG TAB (PROTONIX) PO SCH (10:05)
[2021-10-31] MEDS: POTASSIUM CHLORIDE 10MEQ SR TABLET PO SCH (10:05)
[2021-10-31] MEDS: BUPRENORPHINE/NALOXONE 8-2MG SUBLINGUAL TABLET(SUBOXONE) SL SCH ×3 (10:05→21:00)
[2021-10-31] MEDS: PENTOXIFYLLINE 400 MG TAB PO SCH ×3 (10:05→21:25)
[2021-10-31] MEDS: MAGNESIUM OXIDE 400MG TAB (MAG-OX) PO SCH ×2 (10:06→21:26)
[2021-10-31] MEDS: SPIRONOLACTONE 50 MG TAB PO SCH (10:06)
[2021-10-31] MEDS: HumaLOG INSULIN (NovoLOG) PER UNIT SC SCH ×4 (10:21→20:48)
[2021-10-31 16:00] VITALS: BP 119/79
[2021-10-31 20:00] VITALS: BP 113/80
[2021-10-31] MEDS: RAMELTEON 8 MG TAB (ROZEREM) PO PRN (21:25)
[2021-11-01] MEDS: hydrOXYzine 25 MG TAB PO PRN ×2 (01:50→16:58)
[2021-11-01 04:00] VITALS: BP 105/59
[2021-11-01] MEDS: LevoFLOXacin 500 MG TABLET PO SCH (05:58)
[2021-11-01 06:28] LABS: BASO # 0.1 10^3/uL (0.0-0.2); BASO % 0.8 % (0.0-1.0); EOS # 0.1 10^3/uL (0.0-0.5); HEMATOCRIT 40.4 % (42.0-52.0); HEMOGLOBIN 13.9 g/dl (13.5-17.5); LYMPH # 1.1 10^3/uL (1.5-5.0); LYMPH % 10.9 % (24.0-44.0); MEAN CORPUSCULAR HEMOGLOBIN 32.3 pg (27.0-33.0); MEAN CORPUSCULAR HGB CONC 34.4 g/dl (32.0-36.5); MEAN CORPUSCULAR VOLUME 93.7 fl (80.0-96.0); MONO # 0.6 10^3/uL (0.0-0.8); MONO % 6.3 % (2.0-8.0); NEUTROPHILS # 8.1 10^3/uL (1.5-8.5); NEUTROPHILS % 78.8 % (36.0-66.0); PLATELET COUNT, AUTOMATED 152 10^3/uL (150-450); RED BLOOD COUNT 4.31 10^6/uL (4.30-6.10); WHITE BLOOD COUNT 10.2 10^3/uL (4.0-10.0)
[2021-11-01 07:04] LABS: ALT/SGPT 132 U/L (12-78); BLOOD UREA NITROGEN 13 MG/DL (7-18); CARBON DIOXIDE LEVEL 34 MEQ/L (21-32); CHLORIDE LEVEL 87 MEQ/L (98-107); CREATININE FOR GFR 0.94 MG/DL (0.70-1.30); GLOMERULAR FILTRATION RATE > 60.0 (>56); GLUCOSE, FASTING 141 MG/DL (70-100); MAGNESIUM LEVEL 1.3 MG/DL (1.8-2.4); POTASSIUM SERUM 3.6 MEQ/L (3.5-5.1); SODIUM LEVEL 130 MEQ/L (136-145); TOTAL PROTEIN 5.5 GM/DL (6.4-8.2)
[2021-11-01 07:14] LABS: BILIRUBIN,TOTAL 28.6 MG/DL (0.2-1.0)
[2021-11-01 08:00] VITALS: BP 109/79
[2021-11-01] MEDS: APIXABAN 5 MG TAB (ELIQUIS) PO SCH ×2 (09:55→21:30)
[2021-11-01] MEDS: MAGNESIUM OXIDE 400MG TAB (MAG-OX) PO SCH ×2 (09:56→21:30)
[2021-11-01] MEDS: SPIRONOLACTONE 50 MG TAB PO SCH (09:56)
[2021-11-01] MEDS: PANTOPRAZOLE 40MG TAB (PROTONIX) PO SCH (09:56)
[2021-11-01] MEDS: POTASSIUM CHLORIDE 10MEQ SR TABLET PO SCH (09:57)
[2021-11-01] MEDS: BUPRENORPHINE/NALOXONE 8-2MG SUBLINGUAL TABLET(SUBOXONE) SL SCH ×3 (09:57→21:34)
[2021-11-01] MEDS: PENTOXIFYLLINE 400 MG TAB PO SCH ×3 (09:57→21:30)
[2021-11-01] MEDS: traMADol 50 MG TAB PO PRN (09:58)
[2021-11-01] MEDS: HumaLOG INSULIN (NovoLOG) PER UNIT SC SCH ×4 (09:59→21:00)
[2021-11-01] MEDS ORDERED: VANCOMYCIN HCL 1,000 MG, VIAL MATE ADAPTER 1 EACH in NS 250 ML IV ONE ×2 (15:00→16:00)
[2021-11-01] MEDS: CHOLESTYRAMINE 4 GM PWD PKT PO SCH ×2 (15:40→21:26)
[2021-11-01 17:00] VITALS: BP 135/80
[2021-11-01] MEDS ORDERED: TORSEMIDE 20 MG TAB PO SCH (17:00)
[2021-11-01] MEDS ORDERED: VANCOMYCIN HCL 1,000 MG, VIAL MATE ADAPTER 1 EACH in NS 250 ML IV SCH (21:00)
[2021-11-01] MEDS: diphenhydrAMINE 25MG CAP PO SCH (21:30)
[2021-11-01 21:35] VITALS: BP 130/80
[2021-11-02] MEDS: VANCOMYCIN HCL 1,000 MG, VIAL MATE ADAPTER 1 EACH in NS 250 ML IV SCH ×3 (02:01→18:17)
[2021-11-02] MEDS: LevoFLOXacin 500 MG TABLET PO SCH (05:49)
[2021-11-02 06:03] VITALS: BP 119/74
[2021-11-02 07:00] LABS: BASO # 0.1 10^3/uL (0.0-0.2); BASO % 0.9 % (0.0-1.0); EOS # 0.1 10^3/uL (0.0-0.5); EOS % 0.9 % (0.0-3.0); HEMATOCRIT 40.4 % (42.0-52.0); HEMOGLOBIN 13.8 g/dl (13.5-17.5); LYMPH # 1.1 10^3/uL (1.5-5.0); LYMPH % 9.4 % (24.0-44.0); MEAN CORPUSCULAR HEMOGLOBIN 32.3 pg (27.0-33.0); MEAN CORPUSCULAR HGB CONC 34.2 g/dl (32.0-36.5); MEAN CORPUSCULAR VOLUME 94.6 fl (80.0-96.0); MONO # 0.6 10^3/uL (0.0-0.8); MONO % 5.7 % (2.0-8.0); NEUTROPHILS % 81.3 % (36.0-66.0); PLATELET COUNT, AUTOMATED 183 10^3/uL (150-450); RED BLOOD COUNT 4.27 10^6/uL (4.30-6.10); WHITE BLOOD COUNT 11.1 10^3/uL (4.0-10.0)
[2021-11-02 07:37] LABS: ALT/SGPT 120 U/L (12-78); BLOOD UREA NITROGEN 12 MG/DL (7-18); CALCIUM LEVEL 8.1 MG/DL (8.5-10.1); CARBON DIOXIDE LEVEL 33 MEQ/L (21-32); CHLORIDE LEVEL 89 MEQ/L (98-107); CREATININE FOR GFR 0.83 MG/DL (0.70-1.30); GLOMERULAR FILTRATION RATE > 60.0 (>56); GLUCOSE, FASTING 147 MG/DL (70-100); MAGNESIUM LEVEL 1.4 MG/DL (1.8-2.4); POTASSIUM SERUM 3.2 MEQ/L (3.5-5.1); SODIUM LEVEL 130 MEQ/L (136-145); TOTAL PROTEIN 5.2 GM/DL (6.4-8.2)
[2021-11-02] MEDS ORDERED: TORSEMIDE 20 MG TAB PO SCH (09:00)
[2021-11-02] MEDS ORDERED: KCL 10MEQ/100ML SWI (KRUN) 10 MEQ in IV 1 EA IV ONE (09:00)
[2021-11-02] MEDS ORDERED: MAG SULF 1GM/100ML (MAG RUN) 1 GM in IV 1 EA IV ONE (09:00)
[2021-11-02] MEDS: PENTOXIFYLLINE 400 MG TAB PO SCH ×3 (09:17→21:27)
[2021-11-02] MEDS: BUPRENORPHINE/NALOXONE 8-2MG SUBLINGUAL TABLET(SUBOXONE) SL SCH ×3 (09:18→21:27)
[2021-11-02] MEDS: MAGNESIUM OXIDE 400MG TAB (MAG-OX) PO SCH ×2 (09:18→21:27)
[2021-11-02] MEDS: PANTOPRAZOLE 40MG TAB (PROTONIX) PO SCH (09:18)
[2021-11-02] MEDS: APIXABAN 5 MG TAB (ELIQUIS) PO SCH ×2 (09:18→21:27)
[2021-11-02] MEDS: SPIRONOLACTONE 50 MG TAB PO SCH (09:18)
[2021-11-02] MEDS: POTASSIUM CHLORIDE 10MEQ SR TABLET PO SCH (09:18)
[2021-11-02] MEDS: HumaLOG INSULIN (NovoLOG) PER UNIT SC SCH ×4 (09:19→21:00)
[2021-11-02] MEDS: CHOLESTYRAMINE 4 GM PWD PKT PO SCH ×4 (09:19→21:27)
[2021-11-02] MEDS ORDERED: POTASSIUM CHLORIDE 10MEQ SR TABLET PO ONE ×2 (10:00→11:00)
[2021-11-02 14:00] VITALS: BP 103/69
[2021-11-02] MEDS: hydrOXYzine 25 MG TAB PO PRN (18:22)
[2021-11-02] MEDS: traMADol 50 MG TAB PO PRN (18:22)
[2021-11-02] MEDS: RAMELTEON 8 MG TAB (ROZEREM) PO PRN (21:27)
[2021-11-02] MEDS: diphenhydrAMINE 25MG CAP PO SCH (21:27)
[2021-11-02 22:00] VITALS: BP 105/80
[2021-11-03] MEDS: VANCOMYCIN HCL 1,000 MG, VIAL MATE ADAPTER 1 EACH in NS 250 ML IV SCH ×3 (02:00→18:35)
[2021-11-03] MEDS: hydrOXYzine 25 MG TAB PO PRN (05:38)
[2021-11-03] MEDS: LevoFLOXacin 500 MG TABLET PO SCH (05:38)
[2021-11-03 05:45] VITALS: BP 118/85
[2021-11-03 07:26] LABS: HEMATOCRIT 40.1 % (42.0-52.0); HEMOGLOBIN 13.6 g/dl (13.5-17.5); MEAN CORPUSCULAR HEMOGLOBIN 32.1 pg (27.0-33.0); MEAN CORPUSCULAR HGB CONC 33.9 g/dl (32.0-36.5); MEAN CORPUSCULAR VOLUME 94.6 fl (80.0-96.0); PLATELET COUNT, AUTOMATED 210 10^3/uL (150-450); RED BLOOD COUNT 4.24 10^6/uL (4.30-6.10); WHITE BLOOD COUNT 11.5 10^3/uL (4.0-10.0)
[2021-11-03 08:03] LABS: ATYPICAL LYMPH 3 % (0-5); BASOPHILS 2 % (0-1); LYMPHOCYTES 6 % (16-44); MONOCYTES 3 % (0-5); NEUTROPHILS 86 % (28-66)
[2021-11-03 08:05] LABS: ANISOCYTOSIS 1+
[2021-11-03 08:06] LABS: MICROCYTOSIS 1+; PLATELET ESTIMATE NORMAL (NORMAL); TARGET CELLS 1+
[2021-11-03 08:38] LABS: ALBUMIN 1.9 GM/DL (3.2-5.2); ALT/SGPT 113 U/L (12-78); BLOOD UREA NITROGEN 11 MG/DL (7-18); CALCIUM LEVEL 8.4 MG/DL (8.5-10.1); CARBON DIOXIDE LEVEL 31 MEQ/L (21-32); CHLORIDE LEVEL 93 MEQ/L (98-107); CREATININE FOR GFR 0.87 MG/DL (0.70-1.30); GLOMERULAR FILTRATION RATE > 60.0 (>56); GLUCOSE, FASTING 139 MG/DL (70-100); MAGNESIUM LEVEL 1.6 MG/DL (1.8-2.4); POTASSIUM SERUM 3.5 MEQ/L (3.5-5.1); SODIUM LEVEL 132 MEQ/L (136-145); TOTAL PROTEIN 5.3 GM/DL (6.4-8.2)
[2021-11-03 08:57] LABS: BILIRUBIN,TOTAL 29.8 MG/DL (0.2-1.0)
[2021-11-03] MEDS: PANTOPRAZOLE 40MG TAB (PROTONIX) PO SCH (09:29)
[2021-11-03] MEDS: PENTOXIFYLLINE 400 MG TAB PO SCH ×3 (09:29→20:14)
[2021-11-03] MEDS: APIXABAN 5 MG TAB (ELIQUIS) PO SCH ×2 (09:29→20:14)
[2021-11-03] MEDS: HumaLOG INSULIN (NovoLOG) PER UNIT SC SCH ×4 (09:29→20:02)
[2021-11-03] MEDS: MAGNESIUM OXIDE 400MG TAB (MAG-OX) PO SCH ×2 (09:29→20:15)
[2021-11-03] MEDS: POTASSIUM CHLORIDE 10MEQ SR TABLET PO SCH (09:30)
[2021-11-03] MEDS: SPIRONOLACTONE 25 MG TAB PO SCH (09:31)
[2021-11-03] MEDS: BUPRENORPHINE/NALOXONE 8-2MG SUBLINGUAL TABLET(SUBOXONE) SL SCH ×3 (09:31→20:14)
[2021-11-03] MEDS: CHOLESTYRAMINE 4 GM PWD PKT PO SCH ×4 (10:20→20:50)
[2021-11-03] MEDS: diphenhydrAMINE 25MG CAP PO SCH ×2 (12:00→18:17)
[2021-11-03 14:00] VITALS: BP 117/85
[2021-11-03] MEDS ORDERED: PILL CUTTER 1 EACH XX PRN (14:35)
[2021-11-03] MEDS: RAMELTEON 8 MG TAB (ROZEREM) PO PRN (20:50)
[2021-11-03 22:00] VITALS: BP 102/65
[2021-11-04] MEDS: diphenhydrAMINE 25MG CAP PO SCH ×4 (01:05→17:45)
[2021-11-04] MEDS: VANCOMYCIN HCL 1,000 MG, VIAL MATE ADAPTER 1 EACH in NS 250 ML IV SCH ×3 (01:05→17:59)
[2021-11-04 05:00] VITALS: BP 105/70
[2021-11-04] MEDS: LevoFLOXacin 500 MG TABLET PO SCH (05:18)
[2021-11-04 08:07] LABS: BASO # 0.1 10^3/uL (0.0-0.2); BASO % 1.2 % (0.0-1.0); EOS # 0.1 10^3/uL (0.0-0.5); EOS % 0.7 % (0.0-3.0); HEMATOCRIT 42.8 % (42.0-52.0); HEMOGLOBIN 14.5 g/dl (13.5-17.5); LYMPH # 1.3 10^3/uL (1.5-5.0); LYMPH % 11.5 % (24.0-44.0); MEAN CORPUSCULAR HEMOGLOBIN 32.4 pg (27.0-33.0); MEAN CORPUSCULAR HGB CONC 33.9 g/dl (32.0-36.5); MEAN CORPUSCULAR VOLUME 95.7 fl (80.0-96.0); MONO # 0.6 10^3/uL (0.0-0.8); MONO % 5.3 % (2.0-8.0); NEUTROPHILS # 8.9 10^3/uL (1.5-8.5); NEUTROPHILS % 79.6 % (36.0-66.0); PLATELET COUNT, AUTOMATED 264 10^3/uL (150-450); RED BLOOD COUNT 4.47 10^6/uL (4.30-6.10); WHITE BLOOD COUNT 11.2 10^3/uL (4.0-10.0)
[2021-11-04 08:51] LABS: ALBUMIN 1.9 GM/DL (3.2-5.2); ALT/SGPT 111 U/L (12-78); BLOOD UREA NITROGEN 8 MG/DL (7-18); CALCIUM LEVEL 8.5 MG/DL (8.5-10.1); CARBON DIOXIDE LEVEL 28 MEQ/L (21-32); CHLORIDE LEVEL 94 MEQ/L (98-107); CREATININE FOR GFR 0.88 MG/DL (0.70-1.30); GLOMERULAR FILTRATION RATE > 60.0 (>56); GLUCOSE, FASTING 120 MG/DL (70-100); MAGNESIUM LEVEL 1.7 MG/DL (1.8-2.4); SODIUM LEVEL 132 MEQ/L (136-145); TOTAL PROTEIN 5.6 GM/DL (6.4-8.2)
[2021-11-04 08:56] LABS: BILIRUBIN,TOTAL 30.3 MG/DL (0.2-1.0)
[2021-11-04] MEDS: POTASSIUM CHLORIDE 10MEQ SR TABLET PO SCH (09:03)
[2021-11-04] MEDS: MAGNESIUM OXIDE 400MG TAB (MAG-OX) PO SCH ×2 (09:04→21:45)
[2021-11-04] MEDS: APIXABAN 5 MG TAB (ELIQUIS) PO SCH ×2 (09:05→21:45)
[2021-11-04] MEDS: SPIRONOLACTONE 25 MG TAB PO SCH (09:05)
[2021-11-04] MEDS: PANTOPRAZOLE 40MG TAB (PROTONIX) PO SCH (09:06)
[2021-11-04] MEDS: CHOLESTYRAMINE 4 GM PWD PKT PO SCH ×4 (09:06→21:49)
[2021-11-04] MEDS: HumaLOG INSULIN (NovoLOG) PER UNIT SC SCH ×4 (09:07→21:00)
[2021-11-04] MEDS: PENTOXIFYLLINE 400 MG TAB PO SCH ×3 (09:22→21:45)
[2021-11-04] MEDS: BUPRENORPHINE/NALOXONE 8-2MG SUBLINGUAL TABLET(SUBOXONE) SL SCH ×3 (09:22→21:49)
[2021-11-04 14:00] VITALS: BP 126/76
[2021-11-04] MEDS: RAMELTEON 8 MG TAB (ROZEREM) PO PRN (21:44)
[2021-11-04 22:00] VITALS: BP 128/80
[2021-11-04] MEDS: hydrOXYzine 25 MG TAB PO PRN (22:06)
[2021-11-05] MEDS: diphenhydrAMINE 25MG CAP PO SCH ×4 (02:08→18:32)
[2021-11-05] MEDS: VANCOMYCIN HCL 1,000 MG, VIAL MATE ADAPTER 1 EACH in NS 250 ML IV SCH (02:08)
[2021-11-05 06:00] VITALS: BP 119/74
[2021-11-05] MEDS: LevoFLOXacin 500 MG TABLET PO SCH (06:26)
[2021-11-05 08:20] LABS: BASO # 0.1 10^3/uL (0.0-0.2); BASO % 1.1 % (0.0-1.0); EOS # 0.1 10^3/uL (0.0-0.5); EOS % 0.8 % (0.0-3.0); HEMATOCRIT 39.3 % (42.0-52.0); HEMOGLOBIN 13.2 g/dl (13.5-17.5); LYMPH % 8.8 % (24.0-44.0); MEAN CORPUSCULAR HEMOGLOBIN 32.1 pg (27.0-33.0); MEAN CORPUSCULAR HGB CONC 33.6 g/dl (32.0-36.5); MEAN CORPUSCULAR VOLUME 95.6 fl (80.0-96.0); MONO # 0.7 10^3/uL (0.0-0.8); MONO % 6.1 % (2.0-8.0); NEUTROPHILS # 9.4 10^3/uL (1.5-8.5); NEUTROPHILS % 81.1 % (36.0-66.0); PLATELET COUNT, AUTOMATED 270 10^3/uL (150-450); RED BLOOD COUNT 4.11 10^6/uL (4.30-6.10); WHITE BLOOD COUNT 11.5 10^3/uL (4.0-10.0)
[2021-11-05] MEDS: CHOLESTYRAMINE 4 GM PWD PKT PO SCH ×4 (08:39→19:48)
[2021-11-05] MEDS: BUPRENORPHINE/NALOXONE 8-2MG SUBLINGUAL TABLET(SUBOXONE) SL SCH ×2 (08:39→16:27)
[2021-11-05] MEDS: PENTOXIFYLLINE 400 MG TAB PO SCH ×3 (08:39→20:28)
[2021-11-05] MEDS: POTASSIUM CHLORIDE 10MEQ SR TABLET PO SCH (08:40)
[2021-11-05] MEDS: PANTOPRAZOLE 40MG TAB (PROTONIX) PO SCH (08:40)
[2021-11-05] MEDS: APIXABAN 5 MG TAB (ELIQUIS) PO SCH ×2 (08:40→20:27)
[2021-11-05] MEDS: SPIRONOLACTONE 25 MG TAB PO SCH (08:40)
[2021-11-05] MEDS: HumaLOG INSULIN (NovoLOG) PER UNIT SC SCH ×4 (08:41→20:38)
[2021-11-05] MEDS: MAGNESIUM OXIDE 400MG TAB (MAG-OX) PO SCH ×2 (08:41→20:28)
[2021-11-05 08:44] VITALS: BP 124/90
[2021-11-05 08:58] LABS: ALBUMIN 1.7 GM/DL (3.2-5.2); ALT/SGPT 102 U/L (12-78); BLOOD UREA NITROGEN 7 MG/DL (7-18); CALCIUM LEVEL 8.4 MG/DL (8.5-10.1); CARBON DIOXIDE LEVEL 29 MEQ/L (21-32); CHLORIDE LEVEL 96 MEQ/L (98-107); CREATININE FOR GFR 0.82 MG/DL (0.70-1.30); GLOMERULAR FILTRATION RATE > 60.0 (>56); GLUCOSE, FASTING 125 MG/DL (70-100); MAGNESIUM LEVEL 1.6 MG/DL (1.8-2.4); POTASSIUM SERUM 4.3 MEQ/L (3.5-5.1); SODIUM LEVEL 132 MEQ/L (136-145); TOTAL PROTEIN 5.2 GM/DL (6.4-8.2)
[2021-11-05] MEDS: CEPHALEXIN 500 MG CAP PO SCH ×2 (13:03→18:32)
[2021-11-05 13:56] LABS: BILIRUBIN,TOTAL 28.5 MG/DL (0.2-1.0)
[2021-11-05 14:00] VITALS: BP 122/91
[2021-11-05] MEDS: diphenhydrAMINE CREAM 30GM TOP PRN ×2 (16:27→20:31)
[2021-11-05 22:00] VITALS: BP 123/91
[2021-11-06] MEDS: diphenhydrAMINE 25MG CAP PO SCH ×4 (00:26→18:08)
[2021-11-06] MEDS: CEPHALEXIN 500 MG CAP PO SCH ×3 (00:26→12:26)
[2021-11-06 06:00] VITALS: BP 122/87
[2021-11-06 08:55] LABS: INR 1.24; PROTHROMBIN TIME 16.1 SECONDS (12.7-14.5)
[2021-11-06] MEDS: HumaLOG INSULIN (NovoLOG) PER UNIT SC SCH ×4 (08:55→20:48)
[2021-11-06] MEDS: CHOLESTYRAMINE 4 GM PWD PKT PO SCH ×4 (08:56→20:17)
[2021-11-06] MEDS: APIXABAN 5 MG TAB (ELIQUIS) PO SCH ×2 (09:00→21:08)
[2021-11-06] MEDS: BUPRENORPHINE/NALOXONE 8-2MG SUBLINGUAL TABLET(SUBOXONE) SL SCH (09:00)
[2021-11-06] MEDS: SPIRONOLACTONE 25 MG TAB PO SCH (09:01)
[2021-11-06] MEDS: PANTOPRAZOLE 40MG TAB (PROTONIX) PO SCH (09:01)
[2021-11-06] MEDS: POTASSIUM CHLORIDE 10MEQ SR TABLET PO SCH (09:02)
[2021-11-06] MEDS: PENTOXIFYLLINE 400 MG TAB PO SCH ×3 (09:08→21:08)
[2021-11-06] MEDS: MAGNESIUM OXIDE 400MG TAB (MAG-OX) PO SCH ×2 (09:09→21:09)
[2021-11-06] MEDS: diazePAM 2 MG TAB PO PRN (18:04)
[2021-11-07] MEDS: diphenhydrAMINE 25MG CAP PO SCH ×5 (00:08→23:27)
[2021-11-07 06:00] VITALS: BP 117/83
[2021-11-07] MEDS: CHOLESTYRAMINE 4 GM PWD PKT PO SCH ×4 (08:26→20:24)
[2021-11-07] MEDS: SPIRONOLACTONE 25 MG TAB PO SCH (08:27)
[2021-11-07] MEDS: PANTOPRAZOLE 40MG TAB (PROTONIX) PO SCH (08:27)
[2021-11-07] MEDS: APIXABAN 5 MG TAB (ELIQUIS) PO SCH ×2 (08:27→20:24)
[2021-11-07] MEDS: HumaLOG INSULIN (NovoLOG) PER UNIT SC SCH ×4 (08:27→20:19)
[2021-11-07] MEDS: PENTOXIFYLLINE 400 MG TAB PO SCH ×3 (08:27→20:25)
[2021-11-07] MEDS: BUPRENORPHINE/NALOXONE 8-2MG SUBLINGUAL TABLET(SUBOXONE) SL SCH (08:28)
[2021-11-07] MEDS: POTASSIUM CHLORIDE 10MEQ SR TABLET PO SCH (08:28)
[2021-11-07] MEDS: MAGNESIUM OXIDE 400MG TAB (MAG-OX) PO SCH ×2 (08:28→20:24)
[2021-11-07] MEDS: traMADol 50 MG TAB PO PRN (08:29)
[2021-11-07 10:00] LABS: BASO # 0.2 10^3/uL (0.0-0.2); BASO % 1.9 % (0.0-1.0); EOS # 0.1 10^3/uL (0.0-0.5); EOS % 1.2 % (0.0-3.0); HEMATOCRIT 37.8 % (42.0-52.0); HEMOGLOBIN 12.9 g/dl (13.5-17.5); MEAN CORPUSCULAR HEMOGLOBIN 32.3 pg (27.0-33.0); MEAN CORPUSCULAR HGB CONC 34.1 g/dl (32.0-36.5); MEAN CORPUSCULAR VOLUME 94.5 fl (80.0-96.0); MONO # 0.6 10^3/uL (0.0-0.8); MONO % 7.9 % (2.0-8.0); NEUTROPHILS # 5.9 10^3/uL (1.5-8.5); NEUTROPHILS % 73.1 % (36.0-66.0); PLATELET COUNT, AUTOMATED 270 10^3/uL (150-450)
[2021-11-07 10:34] LABS: ALBUMIN 1.7 GM/DL (3.2-5.2); ALT/SGPT 95 U/L (12-78); BLOOD UREA NITROGEN 11 MG/DL (7-18); CALCIUM LEVEL 8.3 MG/DL (8.5-10.1); CARBON DIOXIDE LEVEL 27 MEQ/L (21-32); CHLORIDE LEVEL 99 MEQ/L (98-107); CREATININE FOR GFR 0.82 MG/DL (0.70-1.30); GLOMERULAR FILTRATION RATE > 60.0 (>56); GLUCOSE, FASTING 129 MG/DL (70-100); SODIUM LEVEL 134 MEQ/L (136-145); TOTAL PROTEIN 5.3 GM/DL (6.4-8.2)
[2021-11-07 10:37] LABS: BILIRUBIN,TOTAL 27.6 MG/DL (0.2-1.0)
[2021-11-07] MEDS: diazePAM 2 MG TAB PO PRN (17:37)
[2021-11-07 20:30] VITALS: BP 109/77
[2021-11-07] MEDS: hydrOXYzine 25 MG TAB PO PRN (20:30)
[2021-11-07] MEDS: RAMELTEON 8 MG TAB (ROZEREM) PO PRN (20:31)
[2021-11-08] MEDS: diphenhydrAMINE 25MG CAP PO SCH ×4 (05:07→23:46)
[2021-11-08 06:00] VITALS: BP 121/85
[2021-11-08] MEDS: hydrOXYzine 25 MG TAB PO PRN ×2 (07:01→22:15)
[2021-11-08] MEDS ORDERED: ONDANSETRON 4MG/2ML VIAL IV PRN (09:15)
[2021-11-08] MEDS ORDERED: MORPHINE 2 MG/ML 1ML VIAL (J2270) IV PRN (09:15)
[2021-11-08] MEDS ORDERED: LORazepam 2 MG/ML VIAL IV PRN (09:15)
[2021-11-08] MEDS ORDERED: SCOPOLAMINE 1MG TRANSDERMAL PATCH TOP PRN (09:15)
[2021-11-08] MEDS ORDERED: BISACODYL 10 MG SUPP PR PRN (09:15)
[2021-11-08] MEDS ORDERED: FLEET ENEMA PR PRN (09:15)
[2021-11-08] MEDS ORDERED: HYOSCYAMINE SULFATE 0.125 MG SUBL TABLET PO PRN (09:15)
[2021-11-08] MEDS ORDERED: ATROPINE SULFATE 1% OP SOLN 2 ML BTL SL PRN (09:15)
[2021-11-08] MEDS ORDERED: ONDANSETRON 4 MG ORAL DISINTEGRATING TAB PO PRN (09:15)
[2021-11-08 20:11] LABS: ANCA-ATYPICAL <1:20 titer (Neg:<1:20); ANTINUCLEAR ANTIBODIES DIRECT Negative (Negative); CERULOPLASMIN 28.3 mg/dL (16.0-31.0); CYTOPLASMIC NEUTROP AB ANCA-C <1:20 titer (Neg:<1:20); Chitobioside Carbohydrat (ACCA 76 units (0-90); EBV VIRAL CAPSID AG IgM <36.0 U/mL (0.0-35.9); Laminaribioside Carbohyd (ALCA 59 units (0-60); Mannobioside Carbohydrat (AMCA 156 units (0-100); PERINUCLEAR AB ANCA-P <1:20 titer (Neg:<1:20); Saccharomyces cerevisiae IgG A 33 units (0-50); TISSUE TRANSGLUTAMINASE IgA <2 U/mL (0-3); TISSUE TRANSGLUTAMINASE IgG <2 U/mL (0-5)
[2021-11-08] MEDS: LORazepam 1 MG TAB PO PRN (21:05)
[2021-11-08] MEDS: RAMELTEON 8 MG TAB (ROZEREM) PO PRN (22:15)
[2021-11-08] MEDS: diazePAM 2 MG TAB PO PRN (22:15)
[2021-11-09] MEDS: LORazepam 1 MG TAB PO PRN (03:12)
[2021-11-09] MEDS: diphenhydrAMINE 25MG CAP PO SCH ×3 (05:13→18:00)
[2021-11-10] MEDS: MORPHINE 10MG/0.5ML ORAL CONCENTRATE SOLUTION U/D SL PRN ×3 (10:57→19:40)
[2021-11-10] MEDS: diazePAM 2 MG TAB PO PRN (13:32)
[2021-11-10] MEDS: diphenhydrAMINE 25MG CAP PO PRN (13:33)
[2021-11-10] MEDS: hydrOXYzine 25 MG TAB PO PRN (19:32)
[2021-11-10] MEDS: LORazepam 1 MG TAB PO PRN (19:32)
[2021-11-11] MEDS: LORazepam 1 MG TAB PO PRN ×4 (01:58→22:58)
[2021-11-11] MEDS: MORPHINE 10MG/0.5ML ORAL CONCENTRATE SOLUTION U/D SL PRN ×4 (01:58→22:58)
[2021-11-11] MEDS: diphenhydrAMINE 25MG CAP PO PRN ×2 (01:58→16:51)
[2021-11-11] MEDS: hydrOXYzine 25 MG TAB PO PRN ×2 (10:59→22:58)
[2021-11-12] MEDS: LORazepam 1 MG TAB PO PRN ×4 (03:46→21:13)
[2021-11-12] MEDS: MORPHINE 10MG/0.5ML ORAL CONCENTRATE SOLUTION U/D SL PRN ×4 (03:46→21:14)
[2021-11-12] MEDS: hydrOXYzine 25 MG TAB PO PRN ×2 (10:02→21:13)
[2021-11-12] MEDS: diphenhydrAMINE 25MG CAP PO PRN (15:50)
[2021-11-13] MEDS: LORazepam 1 MG TAB PO PRN ×6 (02:16→23:50)
[2021-11-13] MEDS: MORPHINE 10MG/0.5ML ORAL CONCENTRATE SOLUTION U/D SL PRN ×6 (02:16→23:51)
[2021-11-13] MEDS: hydrOXYzine 25 MG TAB PO PRN ×2 (10:05→20:54)
[2021-11-13] MEDS: diphenhydrAMINE 25MG CAP PO PRN (16:27)
[2021-11-14] MEDS: MORPHINE 10MG/0.5ML ORAL CONCENTRATE SOLUTION U/D SL PRN ×5 (02:06→19:58)
[2021-11-14] MEDS: LORazepam 1 MG TAB PO PRN ×5 (02:06→18:22)
[2021-11-14] MEDS: diphenhydrAMINE 25MG CAP PO PRN ×2 (02:07→19:57)
[2021-11-14] MEDS: RAMELTEON 8 MG TAB (ROZEREM) PO PRN (04:49)
[2021-11-14] MEDS ORDERED: FENTANYL REMOVAL DOCUMENTATION MISC XX SCH (17:30)
[2021-11-14] MEDS: fentaNYL 12 MCG/HR PATCH TOP SCH (18:18)
[2021-11-14] MEDS: diazePAM 2 MG TAB PO PRN (19:58)
[2021-11-15] MEDS: LORazepam 1 MG TAB PO PRN ×6 (03:35→22:33)
[2021-11-15] MEDS: MORPHINE 10MG/0.5ML ORAL CONCENTRATE SOLUTION U/D SL PRN ×7 (03:36→23:56)
[2021-11-15] MEDS: RAMELTEON 8 MG TAB (ROZEREM) PO PRN (22:33)
[2021-11-16] MEDS: MORPHINE 10MG/0.5ML ORAL CONCENTRATE SOLUTION U/D SL PRN ×4 (09:49→21:35)
[2021-11-16] MEDS: diphenhydrAMINE 25MG CAP PO PRN ×2 (09:49→18:35)
[2021-11-16] MEDS: LORazepam 1 MG TAB PO PRN ×4 (09:49→21:35)
[2021-11-16] MEDS: hydrOXYzine 25 MG TAB PO PRN (13:42)
[2021-11-17] MEDS: LORazepam 1 MG TAB PO PRN ×4 (01:29→18:29)
[2021-11-17] MEDS: MORPHINE 10MG/0.5ML ORAL CONCENTRATE SOLUTION U/D SL PRN ×6 (01:29→18:26)
[2021-11-17] MEDS: diphenhydrAMINE 25MG CAP PO PRN (14:59)
[2021-11-17] MEDS: fentaNYL 12 MCG/HR PATCH TOP SCH (17:31)
[2021-11-18] MEDS: LORazepam 1 MG TAB PO PRN ×3 (01:27→13:22)
[2021-11-18] MEDS: MORPHINE 10MG/0.5ML ORAL CONCENTRATE SOLUTION U/D SL PRN ×3 (01:28→13:22)
[2021-11-18] MEDS ORDERED: HYOS125TA PO (11:41)
[2021-11-18] MEDS ORDERED: MORP1SOL5 PO (11:41)
[2021-11-18] MEDS ORDERED: ATIV1TAB10 PO (11:41)
[2021-11-18] MEDS ORDERED: NYST1POW9 TOP (12:55)
== END 2021-11-18 14:34 | disposition hospice, inpatient (51) | DRG 280 ==
LOC: M ED 23:37 → M ED INP 10-25 03:13 → M PCU 10-25 05:13 → M MS5PR 10-27 17:10 → M PCU 10-29 14:30 → M MSPAV 11-01 16:35 → UNDODISIN 11-18 12:53
PROVIDERS: ADMIT Internal Medicine; ATTEND General Practice
PROC: 30233J1 Transfusion of Nonautologous Serum Albumin into Peripheral Vein, Percutaneous Approach (ICD-10-PCS; principal; 2021-10-25)
DX: K70.10 Alcoholic hepatitis without ascites (principal); I50.43 Acute on chronic combined systolic (congestive) and diastolic (congestive) heart failure; N17.9 Acute kidney failure, unspecified; E46 Unspecified protein-calorie malnutrition; E87.2 Acidosis; D69.6 Thrombocytopenia, unspecified; E87.3 Alkalosis; I48.20 Chronic atrial fibrillation, unspecified; E87.1 Hypo-osmolality and hyponatremia; I11.0 Hypertensive heart disease with heart failure; I27.20 Pulmonary hypertension, unspecified; I50.810 Right heart failure, unspecified; I08.1 Rheumatic disorders of both mitral and tricuspid valves; R15.9 Full incontinence of feces; F11.20 Opioid dependence, uncomplicated; E88.09 Other disorders of plasma-protein metabolism, not elsewhere classified; E83.42 Hypomagnesemia; L03.115 Cellulitis of right lower limb; Z51.5 Encounter for palliative care; Z66 Do not resuscitate; F10.20 Alcohol dependence, uncomplicated; E78.5 Hyperlipidemia, unspecified; E87.6 Hypokalemia; J44.9 Chronic obstructive pulmonary disease, unspecified; R09.02 Hypoxemia; L29.9 Pruritus, unspecified; K21.9 Gastro-esophageal reflux disease without esophagitis; F41.9 Anxiety disorder, unspecified; F32.A Depression, unspecified; R32 Unspecified urinary incontinence; G40.909 Epilepsy, unspecified, not intractable, without status epilepticus; Z20.822 Contact with and (suspected) exposure to COVID-19; Z79.899 Other long term (current) drug therapy; Z96.653 Presence of artificial knee joint, bilateral; Z96.641 Presence of right artificial hip joint; K76.1 Chronic passive congestion of liver